=== PATIENT | male | born 1985 | race Caucasian/White ===

== ENCOUNTER 2017-08-06 05:47 | Emergency (ER) | payer OTHER ==
[2017-08-06 06:11] VITALS: BMI 29.5
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
[2017-08-06] MEDS ORDERED: TETANUS AND DIPHTHERIA TOXOID 0.5 ML DISP.SYRIN IM ONE (06:33)
[2017-08-06] MEDS ORDERED: HIV POST EXPOSURE PROPHYLAXIS KIT NR ONE (06:44)
[2017-08-06] MEDS ORDERED: HIV POST EXPOSURE PROPHYLAXIS KIT PO ONE (07:06)
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
[2017-08-06 07:25] LABS: BASO % 0.6 % (0-2.0); EOS % 0.9 % (0-4.5); HEMATOCRIT 43.5 % (35.4-49); HEMOGLOBIN 15.3 GM/dL (11.7-16.9); LYMPH % 27.7 % (8-40); MCH 30.4 pg (25.7-33.7); MCHC 35.3 g/dl (32.0-35.9); MEAN CELL VOLUME 86.1 fl (80-96); MEAN PLT VOLUME 9.1 fl (7.5-11.1); NEUT % 63.8 % (42.8-82.8); PLATELET COUNT 191 K/MM3 (134-434); RBC 5.05 M/mm3 (4.00-5.60); RDW 12.4 % (11.9-15.9); WHITE BLOOD COUNT 6.9 K/mm3 (4.0-10.0)
[2017-08-06 07:37] VITALS: BP 125/84; PULSE 93; TEMP 98.4
[2017-08-06 08:26] LABS: ALBUMIN 4.5 g/dl (3.4-5.0); ANION GAP 8 (8-16); BILIRUBIN,TOTAL 0.5 mg/dL (0.2-1.0); BLOOD UREA NITROGEN 17 mg/dL (7-18); CHLORIDE 104 mmol/L (98-107); CHOLESTEROL 147 mg/dL (50-200); CO2 27 mmol/L (21-32); CREATININE 0.9 mg/dL (0.7-1.3); GAMMA GLUTAMYL TRANSPEPTIDASE 40 U/L (5-85); GLUCOSE,RANDOM 92 mg/dL (74-106); LDH 203 U/L (87-241); PHOSPHOROUS 3.5 mg/dL (2.5-4.9); SGOT/AST 29 U/L (15-37); SGPT/ALT 69 U/L (12-78); SODIUM 139 mmol/L (136-145); TOT PROT 8.2 g/dl (6.4-8.2); TRIGLYCERIDES 171 mg/dL (35-160)
[2017-08-06 08:27] LABS: ALK PHOS 75 U/L (45-117)
[2017-08-07 14:12] LABS: HBsAG SCREEN Negative (Negative); HEPATITIS B CORE ANTIBODY Negative (Negative)
== END 2017-08-06 07:37 | disposition home or self-care (01) ==
LOC: JER 05:47
DX: Z77.21 Contact with and (suspected) exposure to potentially hazardous body fluids (principal); S60.512A Abrasion of left hand, initial encounter; S60.511A Abrasion of right hand, initial encounter; Y35.811A Legal intervention involving manhandling, law enforcement official injured, initial encounter; Y93.89 Activity, other specified; Y92.89 Other specified places as the place of occurrence of the external cause; Y99.0 Civilian activity done for income or pay
CPT/HCPCS: 36415; 80053; 82465; 82977; 83615; 84100; 84478; 84550; 85025; 86704; 87340; 87389; 99281-25

== ENCOUNTER 2018-02-15 14:17 | Emergency (ER) | payer OTHER ==
[2018-02-15 14:25] VITALS: BP 130/73; PULSE 72; TEMP 98.2; BMI 29.5
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
[2018-02-15] MEDS ORDERED: IBUPROFEN 600 MG TABLET (FP) PO ONE ×2 (14:52→14:56)
== END 2018-02-15 14:58 | disposition home or self-care (01) ==
LOC: JERFT 14:17
DX: S53.401A Unspecified sprain of right elbow, initial encounter (principal); Y35.891A Legal intervention involving other specified means, law enforcement official injured, initial encounter; Y93.89 Activity, other specified; Y92.9 Unspecified place or not applicable
CPT/HCPCS: 73070-TC-RT-FY; 99281-25

== ENCOUNTER 2018-07-01 05:05 | Emergency (ER) | payer OTHER ==
[2018-07-01 05:22] VITALS: BP 128/90; PULSE 92; TEMP 97.6; BMI 28.7
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
== END 2018-07-01 06:50 | disposition home or self-care (01) ==
LOC: JER 05:05
DX: S80.01XA Contusion of right knee, initial encounter (principal); M54.5 Low back pain; X58.XXXA Exposure to other specified factors, initial encounter; Y93.89 Activity, other specified; Y92.89 Other specified places as the place of occurrence of the external cause; Y99.0 Civilian activity done for income or pay; Y35.891A Legal intervention involving other specified means, law enforcement official injured, initial encounter
CPT/HCPCS: 72100-TC-FY; 73560-TC-RT-FY; 99282-25

== ENCOUNTER 2018-08-10 01:47 | Emergency (ER) | payer OTHER ==
[2018-08-10 02:10] VITALS: BP 124/83; PULSE 76; TEMP 98.2; BMI 29.5
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
== END 2018-08-10 02:26 | disposition home or self-care (01) ==
LOC: JER 01:47
DX: M25.531 Pain in right wrist (principal); M25.532 Pain in left wrist; M79.642 Pain in left hand; M79.641 Pain in right hand; Y35.891A Legal intervention involving other specified means, law enforcement official injured, initial encounter; Y93.89 Activity, other specified; Y92.89 Other specified places as the place of occurrence of the external cause; Y99.0 Civilian activity done for income or pay
CPT/HCPCS: 99283-25

== ENCOUNTER 2018-11-29 01:50 | Emergency (ER) | payer OTHER ==
[2018-11-29 02:32] VITALS: BP 112/79; PULSE 98; TEMP 97.6; BMI 29.5
--- NOTE | 2018-11-29 02:48 | PDOC ---
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
[2018-11-29] MEDS ORDERED: ACETAMINOPHEN 325 MG TABLET (FP) PO ONE (03:00)
[2018-11-29] MEDS ORDERED: ACETAMINOPHEN 325 MG TABLET (FP) ONE (03:02)
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
== END 2018-11-29 04:06 | disposition home or self-care (01) ==
LOC: JER 01:50
DX: M25.571 Pain in right ankle and joints of right foot (principal); Y35.891A Legal intervention involving other specified means, law enforcement official injured, initial encounter; Y93.89 Activity, other specified; Y92.89 Other specified places as the place of occurrence of the external cause; Y99.0 Civilian activity done for income or pay
CPT/HCPCS: 73610-TC-RT-FY; 73630-TC-RT-FY; 99281-25

== ENCOUNTER 2019-05-22 16:52 | Emergency (ER) | payer OTHER ==
[2019-05-22 17:02] VITALS: BP 127/77; PULSE 97; TEMP 98.1; BMI 29.5
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
== END 2019-05-22 17:46 | disposition home or self-care (01) ==
LOC: JERFT 16:52
DX: Z77.29 Contact with and (suspected) exposure to other hazardous substances (principal); X58.XXXA Exposure to other specified factors, initial encounter; Y93.89 Activity, other specified; Y92.89 Other specified places as the place of occurrence of the external cause; Y99.0 Civilian activity done for income or pay
CPT/HCPCS: 99281-25

== ENCOUNTER 2020-01-15 23:15 | Emergency (ER) | payer OTHER ==
[2020-01-15 23:22] VITALS: BP 159/90; PULSE 119; TEMP 98.4; BMI 29.5
--- NOTE | 2020-01-15 23:27 | PDOC ---
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 Patient sustained injury just prior to presentation when his left arm brushed a broken nail in a damaged doorway. Small amount of bleeding from the wound reported. No other injury. Patient is up-to-date on his tetanus prophylaxis (approximately 3 years ago). No history of poor wound healing or immunocompromise. On no daily medications No known allergies Current smoker (approximately 1 pack/day) no daily alcohol or other recreational drug use Past History - Medical History Allergies/Adverse Reactions: Allergies Allergy/AdvReac Type Severity Reaction Status Date / Time No Known Allergies Allergy Verified 01/15/20 23:17 Home Medications: Ambulatory Orders NK [No Known Home Medication] 08/06/17 COPD: No - Immunization History Td Vaccination: Yes Immunization Up to Date: Yes - Psycho-Social/Smoking History Smoking History: Current every day smoker Have you smoked in the past 12 months: Yes Number of Cigarettes Smoked Daily: 10 Information on smoking cessation initiated: Yes - Substance Abuse Hx (Audit-C & DAST Scrn) How often the patient has a drink containing alcohol: Monthly or less Score: In Men: 4 or > Positive; In Women: 3 or > Positive: 1 Screen Result (Pos requires Nsg. Audit-10AR): Negative In the last yr the pt used illegal drug/Rx for NonMed reason: No Score: Yes response is considered Positive: 0 Screen Result (Positive result requires Nsg. DAST-10): Negative Review of Systems - Review of Systems Able to Perform ROS?: Yes Comments:: 12 point review of systems is negative except for what is noted in the history of present illness *Physical Exam - Vital Signs Last Vital Signs Temp Pulse Resp BP Pulse Ox 98.4 F 119 H 16 159/90 100 01/15/20 23:18 01/15/20 23:18 01/15/20 23:18 01/15/20 23:18 01/15/20 23:18 - Physical Exam GENERAL: Adult male, alert and oriented x3, no acute distress HEAD: Normal with no signs of trauma. EYES: PERRLA, EOMI, sclera anicteric, conjunctiva clear. ENT: Ears normal, nares patent, oropharynx clear without exudates. Moist mucous membranes. EXTREMITIES: Normal range of motion, no edema. No clubbing or cyanosis. No erythema, or tenderness. NEUROLOGICAL: Cranial nerves II through XII grossly intact. Normal speech. No focal neurological deficits. 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 No other injuries or complaints. Tetanus prophylaxis is up-to-date. Exam as noted above. Nonbleeding, small, partial thickness laceration of the left forearm cleansed using Hibiclens/ethanol solution. Bacitracin and small, sterile gauze dressing applied. Patient can remove the gauze dressing in the a.m.; for the first few days, can use protective dressing while working but should keep the wound open to air otherwise. Antibiotic ointment such as bacitracin/Neosporin should be used daily on the area for the next few days. He should return or see his doctor if area becomes swollen, red, painful. Discharge - Discharge Information Problems reviewed: Yes Clinical Impression/Diagnosis: Arm laceration Qualifiers: Encounter type: initial encounter Laterality: left Qualified Code(s): S41.112A - Laceration without foreign body of left upper arm, initial encounter Condition: Stable Disposition: HOME - Follow up/Referral - Patient Discharge Instructions Patient Printed Discharge Instructions: DI for Minor Laceration Additional Instructions: Can leave wound open to air starting tomorrow morning Bacitracin/Neosporin ointment to wound daily for the next few days Return if area around wound becomes red/swollen/painful or there is any discharge from the wound - Post Discharge Activity
== END 2020-01-15 23:28 | disposition home or self-care (01) ==
LOC: FER 23:15
DX: S41.112A Laceration without foreign body of left upper arm, initial encounter (principal)
CPT/HCPCS: 99283-25

== ENCOUNTER 2020-02-21 17:00 | Emergency (ER) | payer OTHER ==
[2020-02-21 17:05] VITALS: BP 151/96; PULSE 112; TEMP 99; BMI 29.5
--- OUTSIDE RECORDS SUMMARY | 2020-02-21 17:13 | XMS ---
:1985 Author Organization [facility] Care Team Providers Name Role Phone Lindy Silver Unavailable Unavailable Keith Ramirez Unavailable Unavailable Re-disclosure Warning The records that you are about to access may contain information from federally- assisted alcohol or drug abuse programs. If such information is present, then the following federally mandated warning applies: This information has been disclosed to you from records protected by federal confidentiality rules (42 CFR part 2). The federal rules prohibit you from making any further disclosure of this information unless further disclosure is expressly permitted by the written consent of the person to whom it pertains or as otherwise permitted by 42 CFR part 2. A general authorization for the release of medical or other information is NOT sufficient for this purpose. The Federal rules restrict any use of the information to criminally investigate or prosecute any alcohol or drug abuse patient.The records that you are about to access may contain highly sensitive health information, the redisclosure of which is protected by Article 27-F of the [facility] Public Health law. If you continue you may haveaccess to information: Regarding HIV / AIDS; Provided by facilities licensed or operated by the [facility] Office of Mental Health; or Provided by the [facility] Office for People With Developmental Disabilities. If such information is present, then the following [facility] mandated warning applies: This information has been disclosed to you from confidential records which are protected by state law. State law prohibits you from making any further disclosure of this information without the specific written consent of the person to whom it pertains, or as otherwise permitted by law. Any unauthorized further disclosure in violation of state law may result in a fine or alf sentence or both. A general authorization for the release of medical or other information is NOT sufficient authorization for further disclosure. Encounters Encounter Providers Location Date Indications Data Source(s ) Outpatient Attender: Shena 12/24/2018 JEETSb CASTELLANOS ([facility]: 02:30:00 [facility] [place] [facility] Outpatient Attender: Kenn 12/24/2018 KASEY ( [facility]er[facility]: 12:00:00 AM [facility] [place] [facility] Outpatient Attender: Kenn 12/24/2018 JEETGEN ( [facility]er[facility]: 12:00:00 AM [facility] [place] [facility] Insurance Providers Payer name Policy type Policy ID Covered Covered libertarian's Policy P mo / Coverage libertarian ID relationship to Vanessa Inf ormation type vanessa SELF PAY INSURANCE PMA Management [id number] [place] [id number] [place] [id number] SP [id number] [employer].CONT.UNIT [employer] RISK [id number] SP [id number] MANAGEMENT WC UMR Risk [id number] Management Temp [id number] Problems, Conditions, and Diagnoses Code Display Name Description Problem Type Effective Dates Data Source(s) M79.671 Pain in right Foot pain, right Diagnosis 12/24/2018 [facility] EN foot 02:30:00 PM EDT ([facility] M25.571 Pain in right Pain in right Diagnosis 12/24/2018 [facility] ankle and ankle and joints 12:00:00 AM EDT ([facility] of of right foot [facility] - [facility]) Surgeries/Procedures Procedure Description Date Indications Data Source(s) OFFICE/OUTPATIENT OFFICE/OUTPATIENT 12/24/2018 JEETG EN ([facility] VISIT NEW VISIT NEW 12:00:00 AM [facility] - [place] [facility]) Results ID Date Data Source [id number] 12/09/2019 12:00:00 AM EDT [facility] Name Value Range Interpretation Code Description Data Yanely e(s) Supporting Document(s ) 2019-nCoV [facility] RNA XXX LUPILLO+probe- Imp [facility] and reported by [employer] Procedure
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
== END 2020-02-21 17:30 | disposition home or self-care (01) ==
LOC: FER 17:00
DX: H91.12 Presbycusis, left ear (principal)
CPT/HCPCS: 99283-25

== ENCOUNTER 2021-07-06 18:20 | Emergency (ER) | payer OTHER ==
[2021-07-06 19:21] VITALS: BP 120/77; PULSE 100; TEMP 97.9; BMI 29.5
[2021-07-06] MEDS ORDERED: NAPROXEN 500 MG TABLET PO ONE (20:04)
[2021-07-06] MEDS ORDERED: NAPROXEN 500 MG TABLET ONE (20:04)
== END 2021-07-06 20:07 | disposition home or self-care (01) ==
LOC: FER 18:20
DX: M25.521 Pain in right elbow (principal); M25.561 Pain in right knee
CPT/HCPCS: 99283-25

== ENCOUNTER 2022-01-27 17:57 | Emergency (ER) | payer OTHER ==
[2022-01-27] MEDS ORDERED: IBUPROFEN 600 MG TABLET (FP) PO ONE ×2 (19:10→19:11)
[2022-01-27 21:58] VITALS: BP 108/79; PULSE 110; RESP 18; TEMP 98.6; BMI 29.5
== END 2022-01-27 19:23 | disposition home or self-care (01) ==
LOC: FER 17:57
DX: S39.012A Strain of muscle, fascia and tendon of lower back, initial encounter (principal)
CPT/HCPCS: 99283-25